=== PATIENT | female | born 1960 | race Caucasian/White ===

== ENCOUNTER 2021-05-24 06:13 | Observation (INO) ==
--- NOTE | 2021-05-21 09:45 | Anesthesiology Consultation ---
Date of Service May 21, 2021 Assessment & Plan (1) Encounter for pre-operative examination: Chart Review Chart Review: Acceptable Risk for Surgery (pending preop Covid testing results ) and Patient NOT seen in Pre Admission Testing -Will leave to anesthesiologist discretion if PRP (only electrolytes checked preop) Per nursing assessment 05/16/2021, pt works as a teacher in [employer]. Wears mask at work and in public. No known Covid infection in the past 90 days. Patient is fully vaccinated for Covid. No known Covid positive exposures or Covid related symptoms. Preop Covid testing scheduled 05/22/21= will await results Lefort fracture jaw 2 segments 04/30/19= Done under GA with grade 1 view with MAC #3. ETT #6.5. Atraumatic. History Surgery Operation Date: 05/24/21 07:15 Proposed Procedures p Lower Jaw Osteotomy and Surgical Stent Placement Direct Fixation - Viral Marcial DMD Height/Weight Height: 5 ft 7 in Weight: 92.533 kg Allergies Allergy/AdvReac Type Severity Reaction Status Date / Time nickel Allergy Unknown Rash Verified 05/16/21 14:34 Medications Home Medications Medication Instructions Recorded Confirmed Last Taken cholecalciferol (vitamin D3) 2,000 units PO QAM 02/09/19 05/16/21 04/29/19 06:00 esomeprazole magnesium 40 mg 40 mg PO QAM 02/09/19 05/16/21 04/30/19 02:30 capsule,delayed release (Nexium) spironolactone 50 mg tablet 100 mg PO QAM 02/09/19 05/16/21 04/29/19 06:00 (Aldactone) topiramate 25 mg sprinkle capsule 50 mg PO QAM 02/09/19 05/16/21 04/29/19 06:00 (Topamax) fluticasone propionate 50 2 spray INTRANASAL QAM 04/12/19 05/16/21 04/29/19 06:00 mcg/actuation nasal spray,suspension (Flonase Allergy Relief) guaifenesin 1,200 mg tablet, 1,200 mg PO DAILY PRN 04/12/19 05/16/21 04/29/19 06:00 extended release 12 hr (Mucinex) phenylephrine HCl 10 mg tablet 10 mg PO Q6H PRN 04/12/19 05/16/21 04/29/19 06:00 (Sudafed PE) acetaminophen 500 mg tablet 500 mg PO Q6H PRN 04/30/19 05/16/21 04/29/19 06:00 (Tylenol Extra Strength) atenolol 50 mg tablet 25 mg PO QAM tab 06/10/19 05/16/21 Unknown atorvastatin 10 mg tablet 10 mg PO QAM 02/20/21 05/16/21 Unknown azelastine 137 mcg (0.1 %) nasal 2 spray INTRANASAL QAM 05/16/21 05/16/21 Unknown spray aerosol tizanidine 4 mg capsule 4 mg PO Q6H PRN 05/16/21 05/16/21 Unknown Past Medical History Medical History Anemia Intermittent Degenerative disc disease GERD (gastroesophageal reflux disease) History of COVID-19 DX'D 11/2020-[facility] -RUNNY NOSE, FEVER, COUGH, BODY ACHES,SOB-RECOVERED AT HOME- STILL GETS SOB MORE EASILY THAN SHE USED TO Hyperlipemia IBS (irritable bowel syndrome) PVCs (premature ventricular contractions) MEDICATION KEEPS IN CHECK-DX 20 YRS AGO > NO EPISODES FOR A LONG TIME-NO CARDIOLOGY Vestibular migraine HX Past Family History Family History Family/Other Hypertension Mother Hypertension Stroke Sister Breast cancer Family history of diabetes mellitus Aunt Breast cancer Past Surgical History Surgical History Fusion of spine C5 C6 > ROM IS FINE H/O lumbar discectomy History of appendectomy History of bilateral tubal ligation History of breast biopsy R/L History of cholecystectomy History of colonoscopy MULTIPLE History of esophagogastroduodenoscopy (EGD) History of Griffin fundoplication History of open reduction and internal fixation (ORIF) procedure RIGHT FIBULA History of tooth extraction WISDOM TEETH Hx of oral surgery (04/30/19) Lefort [address] Marcial 04-30-19 Nausea and vomiting after administration of anesthetic agent Social History Smoking Status: Never smoker Do You Dip or Chew Tobacco: No Hx Alcohol Use: Yes Alcohol type: beer alcohol intake frequency: holidays/special occasions only Alcohol Intake Frequency Comment: RARELY Hx Substance Use: No substance use type: does not use Testing Laboratory Results 05/19/21= WBC: 4.8 H/H: 13.6/39.2 PLATELETS: 252 SODIUM: 139 POTASSIUM: 3.3 CHLORIDE: 104 CO2: 29 Electrocardiogram Date: 05/19/21 SR at 59 bpm. Abnormal R wave progression, early transaction (By personal visual inspection- R wave progression in 04/30/19 EKG looks similar in appearance)
--- NOTE | 2021-05-23 20:13 | History & Physical Report ---
Date of Service May 23, 2021 Assessment & Plan (1) Encounter for pre-operative examination: (2) Mandibular retrognathism: (3) Difficulty chewing: (4) Malocclusion, Angle's class II: History of Present Illness Chief Complaint: Maxillofacial exam updated May 24 2021--no changes OK for procedure as planned Oral Maxillofacial Surgery Exam Present Complaint: Mandibular retrognathism Class II difficulty in chewing and incising foods Oral Exam: Class II malocclusion Imaging: Panorex: The Panorex X Ray was reviewed, there were no abnormal findings Good bone anatomy good nerve position noted The TMJ are well positioned and no evidence of bony pathology. The sinus, supporting bone all WNL Evaluated the nerve/sinus relationship to the roots of the teeth and osteotomy sites . Cephalometric analysis---retrognathic lower jaw of 5-6 mm, dental flaring of lower teeth Soft tissue: floor of the mouth, tongue, hard/soft palate, posterior pharyngeal area all with in normal limits, no pathology or abnormal findings noted. No lesions noted that require follow up or Bx. Oral Care: Overall oral care is good Occlusion: Class II with ortho in place TMJ exam: No pop, clicking, pain, good ROM, No history of TMJ injury or dysfunction Periodontal exam: Healthy gingival tissue without evidence of periodontal pathology. Head/Neck exam: Neck is supple, FROM, Able to extend and flex neck w/o difficulty, no masses, no abnormalities, no airway issues, no evidence of sleep apnea. Treatment Plan: Sagittal advancement with DOF Set up with general anesthesia in hospital due to complexity of the procedure I reviewed the treatment plan and consent with the patient Understanding was expressed. Time was given for questions regarding the surgery, risks and post op care. Discussed alternative to treatment--procedure as planned, Do not do surgery Risks discussed: Bleeding,Pain,swelling,infection, delayed healing, nerve injury to face,lips,tongue,chin area which could be permanent (rare). TMJ, jaw stiffness, change in bite (rare), ear pain (referred). Sinus problems like fistula or infection. Bad split and need for lobsterman MMF. plate infection, poor results need for follow up ortho, she is aware dr Aguilar retired--will need new ortho to complete the case. Home care reviewed: tooth brushing, rinsing, follow up care with Dr Marcial. diet=[id number] dental. Discussed activity level, driving/work while on Rx pain Meds. Follow up with new bean picker machine operator to complete the case Surgery to be set up May 24 2021 The goal of this proposed jaw surgery is to re-establish the functional capacity of the patient`s bite. This has been brought about primarily by an unbalanced jaw relationship and resulting lack of occlusion. My patient`s main complaint is difficulty with mastication and chronic lip,tongue and cheek bitting. The primary goal of this treatment is to restore normal function through baptism of proper jaw position. The deformity is not correctable by orthodontic alone and surgery is medically necessary.We are preforming this procedure to obtain a function jaw relationship. The planned surgery will be preformed in the OR of The in [place], [place]. A 23 hour observation following the surgery is planned.This surgery should be considered medically necessary for the patient`s well-being. I have recently seen the above patient for a surgical consultation regarding a maxillofacial deformity. Clinical examination reveals a healthy 60 year old female, with an obvious maxillofacial deformity. Clinical evaluation supports the following: Mandibular retrognathism Inability to chew foods adequately The disharmonies in the jaw relationship are often caused by gross defects in the patient`s skeletal structures. Orthognathic surgery involves the reconstructive procedures to correct these deformities of the jaws and facial skeletal structures, and is indicated for this patient. Mrs. Bhatia has a diagnosis of a retrognathic lower jaw and traumatic malocclusion. This deformity is causing difficulty in mastication and a traumatic occlusion with bitting of the lips, tongue and cheeks. Due to the above diagnosis the patient requires the following functional orthognathic surgery. SURGERY REQUIRED (phase II treatment) Mandibular osteotomy This procedure will be done at the in [place], [place]. I am planning either an out patient or a 23 hr observation. Please be advised that this surgery will not be performed for a cosmetic correction. The unstable nature of the present jaw condition does not allow natural function . The skeletal deformity is not able to be corrected by orthodontics alone and thus surgery in medically necessary to improve and restore normal function and mastication ability. Diagnosis------- Retrognathism Suggested treatment--- sagittal advancement Main Concern: "my chewing is getting worse, I continue to bite my lips and tongue, my bite is off," Major Discrepancies: A-P Retrognathism-- There is a 5 mm retrognathic relationship of the lower to upper jaw Vertical Edge to Edge relationship-There is an edge-edge to relationship Medical Indication For Reconstructive Jaw Surgery Inability to close jaws into a normal relationship due to the severe skeletal deformity. Skeletal malocclusion due to the skeletal deformity resulting in a traumatic occlusion Chronic mastication difficulty due to the skeletal deformity. Soft tissue trauma to tongue, lips and cheeks due to the traumatic occlusion. excessive jarvis of lower teeth left side Treatment plan: Sagittal split advancement CPT 66197/ ICD10 M26.04 The above mentioned surgical procedure is not being preformed for any type of cosmetic reasons. The patient has a true jaw deformity that is preventing him/her from functioning in a normal manner. The proposed surgery is for functional rehabilitation of the skeletal alignment of the patient`s jaw. Plan Details Other Medications: New: atenolol 50 mg PO DAILY spironolactone (Aldactone) 50 mg PO DAILY esomeprazole magnesium 40 mg PO DAILY triamcinolone acetonide 55 mcg/actuation 55 mcg intranasal topiramate 25 mg PO DAILY cyclobenzaprine 10 mg PO HS cholecalciferol (vitamin D3) 2,000 units PO DAILY HPI HPI History of Present Illness: Details: The patient was referred for an orthognathic evaluation. 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 I reviewed the need for the OG surgery, discussed the timing of the surgery with ortho. Reviewed the risks such as pain,swelling,infection, bleeding, nerve injury which could cause permanent numbness to face, lips, chin, tongue and gums, sinus issues, congestion, stiffness and muscle pain, changes in bite and looks of teeth and face. Injury to teeth=root canals, scaring, need for further ortho, malunion, poor result home and oral care stressed, TMJ issues, no cosmetic issues all are functional , nasal, lip changes. Also reviewed home care, diet,follow up, activity level and continuation of orthodontic care. Diagnosis------Mandibular Retrognathism Suggested treatment----Mandibular sagittal advancement with Direct fixation Main Concern: "my chewing is getting worse, I continue to bite my lips and tongue, my bite is off," Software Trainer needs to correct lower arch due to it being narrow, however there is need for upper jaw to be made wider so the lower teeth can be up righted. Major Discrepancies:maxillary transverse hypoplasia and retrognathic lower jaw, poor dental occlusion lower/upper teeth, narrow upper-skeletal arch form, At present it looks normal however because of the narrow lower jaw the relationship is far from ideal A-P Retrognathism of lower by at least 6 mm Vertical Slight Open bite of 4 mm due to the narrow upper/lower jaw and Class II relationship Transverse: There is a narrowing of the upper or lower jaw of mm Once the transverse relationship of the lower teeth are orthodontic corrected the cross bite will be almost 8 mm Based on the established guidelines from the [place] [employer] the severity of this deformity precludes adequate treatment through dental treatment alone. Medical necessity has been established by the significant deformity and the resulting functional impairment in mastication. Patient will need a sagittal advancement CPT code 96771 This will be done at the in [place], [place]. 23 hours observation is planned General anesthesia planned Physical Exam updated May 24 2021 Constitutional: WD/WN, vitals as above well developed Eyes: PERRL, conjunctivae normal, anicteric sclerae normal visual lópez by confrontation and PERRL ENMT: external ear and nose normal, oropharynx normal Mouth: + tongue abnormality, + mouth trauma, + TMJ tender and + dental restorations Mallampati Class: II Throat: uvula midline Healed ulcers secondary to trauma from the skeletal malocclusion and tongue/lip bitting Class II bite with constriction of the lower and upper jaw poor occlusion Neck: trachea midline, no thyromegaly normal visual inspection Thyroid: normal thyroid Respiratory: normal respiratory effort, lungs clear to auscultation normal respiratory effort Auscultation: lungs clear to auscultation bilaterally and + breath sounds absent Cardiovascular: RRR, no murmur, no edema Rate/Rhythm: regular rate and regular rhythm Gastrointestinal (Abdomen): normal bowel sounds, soft, nontender, no hepatosplenomegaly Musculoskeletal: no cyanosis or clubbing, extremities motor strength 5/5 Head/Neck/Chest: normocephalic Skin: no rashes, warm and dry Neurologic: PERRL, EOMI, accommodation nl, no face palsy, no dysarthria CN's II-XI intact bilaterally Cranial Nerves: PERRL and normal facial strength Psychiatric: Orientation: oriented x 3 Lymphatic: no cervical or axillary lymphadenopathy Review of System updated May 24 2021 Review of Systems: Complete-ROS Surg: Constitutional:no fever,no chills,frequent headaches,no recent weight gainandno recent weight loss. Eyes:no eye pain,no blurred vision,no blurred vision,scotopic (night) vision is presentand eyesight problems. Neurological:dizziness,no fainting,no numbness,no tinglingandno convulsions or seizures. Endocrine:no excessive thirst,not feeling too hot,not too coldandnot feeling tired (fatigue). Cardiovascular:no murmurs were heard,no chest pain,no angina pectoris,the heart rate was not slow,the heart rate was not fast,no palpitationsandno lower extremity edema. Respiratory:no shortness of breath,no wheezing,no coughandno hemoptysis. Gastrointestinal:no abdominal pain,no abdominal bloating,no abdominal cramps,no menstrual pain,no nausea,no vomiting,no diarrhea,able to pass flatus,no constipation,no bright red blood per rectumandno melena. Integumentary:no rash:,no boils,no dry skinandno skin lesions. Musculoskeletal:no neck pain,back pain,no joint pain/arthralgiasandarthritis. Hematologic/Lymphatic:no swollen glands,no tendency for easy bruisingandno tendency for easy bleeding. ENT:no hearing loss,no nasal discharge,no hoarsenessandno sore throat. Psychiatric:no sleep disturbances,not nervous or anxious,no depressionandno trouble remembering. Genitourinary:no dysuria,no change in urinary frequency,no incontinence,no kidney stones,no hematuria,no weak stream,no infections,no urinary retentionandno incomplete emptying of bladder. Primary Care Provider: Cyndi Lord, Allergies Allergy/AdvReac Type Severity Reaction Status Date / Time nickel Allergy Unknown Rash Verified 05/24/21 06:42 Home Medications Medication Instructions Recorded Confirmed Type cholecalciferol (vitamin D3) 2,000 units PO QAM 02/09/19 05/24/21 History esomeprazole magnesium 40 mg 40 mg PO QAM 02/09/19 05/24/21 History capsule,delayed release (Nexium) spironolactone 50 mg tablet 100 mg PO QAM 02/09/19 05/24/21 History (Aldactone) topiramate 25 mg sprinkle capsule 50 mg PO QAM 02/09/19 05/24/21 History (Topamax) fluticasone propionate 50 2 spray INTRANASAL QAM 04/12/19 05/24/21 History mcg/actuation nasal spray,suspension (Flonase Allergy Relief) guaifenesin 1,200 mg tablet, 1,200 mg PO DAILY PRN 04/12/19 05/24/21 History extended release 12 hr (Mucinex) phenylephrine HCl 10 mg tablet 10 mg PO Q6H PRN 04/12/19 05/24/21 History (Sudafed PE) acetaminophen 500 mg tablet 500 mg PO Q6H PRN 04/30/19 05/24/21 History (Tylenol Extra Strength) atenolol 50 mg tablet 25 mg PO QAM tab 06/10/19 05/24/21 History atorvastatin 10 mg tablet 10 mg PO QAM 02/20/21 05/24/21 History azelastine 137 mcg (0.1 %) nasal 2 spray INTRANASAL QAM 05/16/21 05/24/21 History spray aerosol tizanidine 4 mg capsule 4 mg PO Q6H PRN 05/16/21 05/24/21 History amoxicillin 875 mg-potassium 1 tab PO Q12H #20 tab 05/22/21 05/24/21 Rx clavulanate 125 mg tablet hydrocodone 5 mg-acetaminophen 325 1 tab PO Q4H PRN #14 tab 05/22/21 05/24/21 Rx mg tablet hydrocodone 5 mg-acetaminophen 325 1 tab PO Q4H PRN #14 tab 05/22/21 05/24/21 Rx mg tablet ondansetron HCl 8 mg tablet 8 mg PO Q8H PRN #10 tab 05/22/21 05/24/21 Rx ondansetron HCl 8 mg tablet 8 mg PO Q8H PRN #10 tab 05/22/21 05/24/21 Rx hydrocodone 5 mg-acetaminophen 325 1 tab PO Q4H PRN #15 tab 05/23/21 05/24/21 Rx mg tablet Past Med/Surg History Medical History Anemia Intermittent Degenerative disc disease GERD (gastroesophageal reflux disease) History of COVID-19 DX'D 11/2020-[facility] -RUNNY NOSE, FEVER, COUGH, BODY ACHES,SOB-RECOVERED AT HOME- STILL GETS SOB MORE EASILY THAN SHE USED TO Hyperlipemia IBS (irritable bowel syndrome) PVCs (premature ventricular contractions) MEDICATION KEEPS IN CHECK-DX 20 YRS AGO > NO EPISODES FOR A LONG TIME-NO CAR DIOLOGY Vestibular migraine HX Surgical History Fusion of spine C5 C6 > ROM IS FINE H/O lumbar discectomy History of appendectomy History of bilateral tubal ligation History of breast biopsy R/L History of cholecystectomy History of colonoscopy MULTIPLE History of esophagogastroduodenoscopy (EGD) History of Griffin fundoplication History of open reduction and internal fixation (ORIF) procedure RIGHT FIBULA History of tooth extraction WISDOM TEETH Hx of oral surgery (04/30/19) Lefort [address] Marcial 04-30-19 Nausea and vomiting after administration of anesthetic agent Family History Family/Other Hypertension Mother Hypertension Stroke Sister Breast cancer Family history of diabetes mellitus Aunt Breast cancer Social History Smoking Status: Never smoker Second Hand Exposure: Yes (PARENTS SMOKED); Do You Dip or Chew Tobacco: No; Hx Alcohol Use: Yes Alcohol type: beer Hx Substance Use: No Preferred Language: Barbadian Communication Ability: Effective Inventory Audit Clerk Required: No Beliefs That Will Affect Care: None marital status: Current Living Situation: Spouse and Family Current Living Situation Comment: LIVES WITH SPOUSE, SON, AMI IN [employer] 2 GRANDKIDS current occupational status: employed current occupation: TEACHER [employer] Other Information That Helps Us Care for You: No Feels Safe at Home: Yes Safety Concerns: Feels Safe At This Time Assistive Devices: Cane and Glasses Assistive Devices Comment: BRACES/CANE PRN Physical Exam Physical Exam: Physical Exam Constitutional WD/WN, vitals as above Eyes PERRL, conjunctivae normal, anicteric sclerae Neck trachea midline, no thyromegaly Thyroid: normal thyroid Respiratory normal respiratory effort, lungs clear to auscultation Auscultation: lungs clear to auscultation bilaterally Cardiovascular RRR, no murmur, no edema Rate/Rhythm: regular rate and regular rhythm Gastrointestinal (Abdomen) normal bowel sounds, soft, nontender, no hepatosplenomegaly Musculoskeletal no cyanosis or clubbing, extremities motor strength 5/5 Skin no rashes, warm and dry Neurologic PERRL, EOMI, accommodation nl, no face palsy, no dysarthria Cranial Nerves: sense of smell intact, PERRL, normal accommodation, EOM intact bilaterally, normal facial strength, tongue midline, normal gag reflex, normal hearing, able to rotate head bilaterally, able to elevate shoulders bilaterally, no nystagmus and symmetric palate elevation Psychiatric A+Ox3, euthymic affect Orientation: cooperative Lymphatic no cervical or axillary lymphadenopathy PG Care Time/CCT Total # of Minutes Spent Total Time Spent with Patient: Total time spent is greater than 50% in coordination of care (as documented) at patient's floor/unit and/or counseling patient: Coding Level of Care Code None Diagnoses Encounter for pre-operative examination Z01.818 Mandibular retrognathism M26.19 Difficulty chewing K08.89 Malocclusion, Angle's class II M26.212 CPT Codes RECONST LWR JAW W/FIXATION - 62565 PREPARE FACE/ORAL PROSTHESIS - 14686
[~2021-05-24 06:13] MED LIST: LR 15ML/HR IV SCH; LR 60ML/HR IV SCH; ceFAZolin 2000MG 2,000 MG/15 ML SYR IV SCH
--- NOTE | 2021-05-24 07:15 | History & Physical Bridge Note ---
Date of Service May 24, 2021 History & Physical Bridge Note I have examined the patient, reviewed the History & Physical and in the interval since the performance of the History & Physical I have noted the following changes of clinical significance: no changes noted OK for the sagittal advancement with fixation Plan 23 hr observation
[2021-05-24] MEDS ORDERED: fentaNYL citrate 100 MCG/2 ML VIAL ONE ×2 (07:49→11:17)
[2021-05-24] MEDS ORDERED: MIDAZOLAM HCL 1 MG/ML 2ML VIAL ONE (07:49)
[2021-05-24] MEDS ORDERED: LIDOCAINE/EPINEPHRINE 1.7 ML CTR ONE (08:18)
[2021-05-24] MEDS ORDERED: BUPIVACAINE/EPINEPHRINE 0.5% 1:200,000 1.8 ML CARP ONE (08:18)
[2021-05-24] MEDS ORDERED: SCOPOLAMINE 1 MG TDSY TD ONE ×2 (08:44→08:48)
[2021-05-24] MEDS ORDERED: ePHEDrine sulfate 50 MG/ML AMP IV PRN (08:48)
[2021-05-24] MEDS ORDERED: ONDANSETRON INJ 2 MG/ML 2 ML VIAL IV PRN ×2 (08:48→11:39)
[2021-05-24] MEDS ORDERED: ATROPINE SULFATE 0.1 MG/ML 10ML SYR IV PRN (08:48)
[2021-05-24] MEDS ORDERED: PROMETHAZINE HCL 12.5 MG in SODIUM CHLORIDE 0.9% 50 ML IV PRN (08:48)
[2021-05-24] MEDS ORDERED: fentaNYL citrate 100 MCG/2 ML VIAL IV PRN (08:48)
[2021-05-24] MEDS ORDERED: CHLORHEXIDINE GLUCONATE 0.12% 480 ML ONE (09:01)
[2021-05-24] MEDS ORDERED: DEXAMETHASONE SOD INJ 4 MG/ML VIAL ONE (09:18)
[2021-05-24] MEDS ORDERED: ONDANSETRON INJ 2 MG/ML 2 ML VIAL ONE (09:18)
[2021-05-24] MEDS ORDERED: SUCCINYLCHOLINE 100MG/5ML SYR IV ONE (09:18)
[2021-05-24] MEDS ORDERED: LIDOCAINE 2% 2 ML VIAL/AMP(20MG/ML) INFIL ONE (09:18)
[2021-05-24] MEDS ORDERED: ROCURONIUM BROMIDE 10 MG/ML 5 ML VIAL IV ONE (09:18)
[2021-05-24] MEDS ORDERED: PROPOFOL IV EMULSION 10 MG/ML 20 ML VIAL IV ONE (09:18)
[2021-05-24] MEDS ORDERED: BACITRACIN OINT 15 GM TUBE ONE (10:34)
[2021-05-24] MEDS ORDERED: OXYMETAZOLINE 0.05% 30 ML BTL PRN (11:39)
[2021-05-24] MEDS ORDERED: MoRPHine SULFATE 2 MG/ML CARP IV PRN (11:39)
[2021-05-24] MEDS ORDERED: LORazepam 2 MG/1 ML VIAL IV PRN (11:39)
[2021-05-24] MEDS ORDERED: ACETAMINOPHEN SUSP 325 MG/10.15 ML UDC PO PRN (11:39)
--- NOTE | 2021-05-24 12:00 | Operative Report ---
PG Post Operative Report Pre & Post Diagnosis Operation Date: 05/24/21 08:20 Pre-Op Diagnosis: Mandibular retrognathism. Post-Op Diagnosis: Mandibular retrognathism. I identified the patient and participated in the time-out.: Yes Procedure Operation Date: 05/24/21 08:20 Actual Procedures p Lower jaw osteotomy and surgical stent placement direct fixation - Viral Marcial DMD Surgeon Viral Marcial, SHERYL Clothing Consultant none Estimated Blood Loss 15 Findings Consistent with Post-Op Diagnosis retrognathic lower jaw DESCRIPTION OF PROCEDURE: Bilateral sagittal split CPT Placement of surgical splint CPT 54009 Specimens none Drains none Anesthesia Type General Complications none Indications Class II retrognathic lower jaw Description of Procedure Operation Date: Pre-Op Diagnosis: Mandibular Retrognathia, Deep Bite Deformity Post-Op Diagnosis: Mandibular Retrognathia, Deep Bite Deformity I identified the patient and participated in the time-out.: Yes Actual Procedures p Sagittal Split Osteotomy of Lower Jaw with Fixation placement of surgical splint (Not Applicable) - Viral Marcial DMD Surgeon Viral Marcial DMD Clothing Consultant none Estimated Blood Loss 15 Findings Consistent with Post-Op Diagnosis Specimens none Drains none Anesthesia Type General Regional Complications none Indications mandibular retrognathism with deviation and deep bite Description of Procedure PG Post Operative Report Pre & Post Diagnosis Pre-Op Diagnosis: Class II Malocclusion with shift to the right Post-Op Diagnosis: Class II Malocclusion with shift to the right I identified the patient and participated in the time-out.: Yes Procedure Actual Procedures p Sagittal split of lower jaw, Placement of surgical splint(Not Applicable) - Viral Marcial DMD DESCRIPTION OF PROCEDURE: Bilateral sagittal split CPT Placement of surgical splint CPT 50548 After this patient is cleared to undergo general anesthesia, she was brought down to the operating room and placed under. General anesthesia via nasotracheal intubation. After adequate anesthesia was obtained, the patient was prepped and draped in the usual manner for a mandibularsagittal osteotomy. The patient had a class II with deviation to the right. This was a complex deformity in 3 D. . After the facial area was draped with the appropriate sterile technique, local anesthesia was infiltrated into themandibular tissues to allow for hemostasis with local anesthetic effect. Timeout After an adequate period of time to allow for the hemostasis and local anesthetic effect, an oropharyngeal throat pack was placed, the oral cavity was irrigated and suctioned dried with Peridex mouth rinse. At this time, the appropriate time outs to verify the patient, position, type of surgery,antibiotics and equipment once everyone agreed we then started the operative procedure. Right side sagittal split Using an electrocautery instrument, an incision approximately 1.5 cm in length was made in the external oblique region on the right side. The tissue was reflected to expose the bone. Once the bone was reflected; I had good visualization of the inferior border of the mandible, the angle of the mandible, the lingual aspect of the mandible and the nerve as it entered the mandibular foramen. Now with a fiberoptic retractor I was able to hold the lingual tissue out of the way and had good visualization of the lingual cortical plate and the nerve entrance into the bone. With the large round becka, I was able to remove the spinous processes of the external oblique ridge. Now using a reciprocating saw, an osteotomy was made parallel to the occlusion plane of the mandibular molar teeth approximately 1-2 mm above the nerve. I then used the spear point Hernandez becka very carefully to make a trough in the external oblique ridge from the previously made osteotomy to an area between the 1st and 2nd molars. I now continued the osteotomy parallel to the long axis of the lower molarsinferiorly to the inferior border of the mandible, taking great care to avoid any trauma to the neurovascular bundle and to ensure that I cut through the cortical plate into the marrow vascular channel. Splitting right side With the use of a bone psych specialist and a small osteotome, I was able to complete the sagittal split of the right mandibular ramus. Great care was taken to avoid any trauma to the neurovascular bundle. Because of the thickness of the bone, the nerve was left in the condyle segment . Due to the bony anatomy of the osteotomy, I did a lot of bone reduction to allow for the mandible to be passively positioned without any pressure on the nerve or pressure that could cause distortion of the mandibular condyle. Once this was accomplished on the right side I turned my attention to the left side and did a very similar procedure in making sure that the two fragments would lay passively over each other and the osteotomy site was then trimmed to ensure that there were no bony interferences I irrigated the areas with normal saline, made sure that the neurovascular bundles were intact. Hemostasis was in excellent control. It was noted that there were few small bony interferences that trimmed with the use of rongeurs and rotary instrument. Once this was accomplished I packed the side with a gauze sponge to prevent any pressure on the nerve and to control bleeding. At this time, I turned my attention to the left side. I needed to use osteotome to complete the splitting of the primally cortical bone w/o a marrow component! Left side sagittal split Using an electrocautery instrument, an incision approximately 1.5 cm in length was made in the external oblique region on the right side. The tissue was reflected to expose the bone. Once the bone was reflected; I had good visualization of the inferior border of the mandible, the angle of the mandible, the lingual aspect of the mandible and the nerve as it entered the mandibular foramen. Now with a fiberoptic retractor I was able to hold the lingual tissue out of the way and had good visualization of the lingual cortical plate and the nerve entrance into the bone. With the large round becka, I was able to remove the spinous processes of the external oblique ridge. Now using a reciprocating saw, an osteotomy was made parallel to the occlusion plane of the mandibular molar teeth approximately 1-2 mm above the nerve. I then used the spear point Hernandez becka very carefully to make a trough in the external oblique ridge from the previously made osteotomy to an area between the 1st and 2nd molars. I now continued the osteotomy parallel to the long axis of the lower molarsinferiorly to the inferior border of the mandible, taking great care to avoid any trauma to the neurovascular bundle and to ensure that I cut through the cortical plate into the marrow vascular channel. Splitting left side with the use of a bone psych specialist and a small osteotome, I was able to complete the sagittal split of the right mandibular ramus. Great care was taken to avoid any trauma to the neurovascular bundle. Because of the thickness of the bone, the nerve was left in the condyle segmen. Due to the bony anatomy of the osteotomy, I did a lot of bone reduction to allow for the mandible to be passively positioned without any pressure on the nerve or pressure that could cause distortion of the mandibular condyle. Once this was accomplished on the right side I turned my attention to the left side and did a very similar procedure in making sure that the two fragments would lay passively over each other and the osteotomy site was then trimmed to ensure that there were no bony interferences I irrigated the areas with normal saline, made sure that the neurovascular bundles were intact. Hemostasis was in excellent control. It was noted that there were few small bony interferences that trimmed with the use of rongeurs and rotary instrument. Once this was accomplished I packed the side with a gauze sponge to prevent any pressure on the nerve and to control bleeding. Establishing the occlusion once the right and left sides were completely cut and the soft tissue was reflected to allow repositioning the final occlusal splint was applied to the mandible and the mandibular complex with the splint was easily rotated and held into position and stabilized with 25 gauge stainless steel wires to the maxilla. Once both sides were split and the segments were layingpassively over each other, the osteotomy site was then trimmed to ensure that there were no bony int erferences. I irrigated the areas with normal saline, made sure that the neurovascular bundles were intact and that hemostasis was in excellent control. Once the segments were positioned the 7 mm advancement with shift to the left and rotation was noted. This was a very complex 3-D movement. The soft tissue was reflected to allow a passive advancement. Applying Direct osseous fixation It was noted that there were few small bony interferences which were easily trimmed with the use of rongeurs and rotary instrument. I was now ready to place the fixation screws. Right side--I used a small clasp, placed between the two fragments and noted that the fragments were seating extremely passively over each other. I did some further trimming to ensure that there was no pressure on the nerve and to ensure that the condyle was well seated. Being satisfied with this, I passed an 11 blade through the cheek, a trocar was placed and then 4 interosseous holes were placed above the neurovascular bundle, but below the external oblique ridge for direct osseous fixation of the right mandibular fragment. Left side----I used a small clasp, placed between the two fragments and noted that the fragments were seating extremely passively over each other. I did some further trimming to ensure that there was no pressure on the nerve and to ensure that the condyle waswell seated. Being satisfied with this, I passed an 11 bladethrough the cheek, a trocar was placed and then 3 interosseous holes were placed above the neurovascular bundle, but below the external oblique ridge for direct osseous fixation of the left mandibular fragment. I now checked both osteotomy sites and found them to be extremely stable. At this time, the temporary intermaxillary fixation was removed. The occlusion was extremely stable and reproducible. The patient had a good range of motion without clicks or pops or deviations. The sites were irrigated and checked for bleeding. I inspected the lingual aspects to make sure that the screws did not perforate the lingual cortical plate--were necessary the screws were adjusted to insure a flush fit. Closure I turned my attention first to the right side; with the use of a 4-0 Vicryl suture, I was able to suture the osteotomy site. Once this was accomplished, we turned our attention to the left side and a similar suturing technique was carried out. Using a 6-0 nylon suture 2 skin sutures in each cheek site was used to close the skin. 2 dental elastics were applied in the cupid areas to allow for functional elastic stability. I now placed a gauze pressure dressing on the lateral sides and held them with an elastic pressure band around the face Recovery The patient was allowed to recover in the usual manner. A check to insure all instrument and sponge count was correct was accomplished and verified the oral cavity was suctioned and Ipassed an oral gastric tube. When fully recovered, extubation occurred. All vital signs were extremely stable. Now the anesthesia department transferred the patient to the hospital litter to be taken to the recovery room. I am very pleased with the osteotomy sites, the positioning of the nerve, and the functional improvement that was gained by the osteotomy. ESTIMATED TIME OF OPERATION: Approximately 2.30 hours When I completedthe case I inspected the sites to insure all bleeding was controlled and the fixation was stable. I removed the throat pack and suctioned the throat and placed an OG tube. Bilateral gauze pressure dressings were placed. All instrument and sponge count was correct. The patient was allowed to awake from the anesthesia. Once full awake the anesthesia tube was removed and the patient was taken to the recovery room with all vital sign stable. The patient tolerated the surgery verywell. I will keep [place] overnight and D/C w/in 23 hr observation. If patient meet criteria he will be discharged tomorrow AM I will follow the patient in my office, Rx and instructions will be given upon discharge. First post op May 29 at 4 :15 I attest to the content of the Intraoperative Record and any orders documented therein. Any exceptions are noted below.
[2021-05-24] MEDS ORDERED: TRIAMCINOLONE ACET 0.1% OINT 15 GM TUBE ONE (12:21)
[2021-05-24] MEDS ORDERED: PROMETHAZINE HCL INJ 25 MG/ML 1 ML VIAL ONE (12:28)
[2021-05-24] MEDS ORDERED: SODIUM CHLORIDE 0.9% 50 ML BAG ONE (12:28)
--- NOTE | 2021-05-24 12:36 | Anesthesiology Progress Note ---
Date of Service May 24, 2021 Anesthesia Post Procedure Vital Signs Vital Signs: Temp Pulse Pulse Resp BP Pulse Ox 05/24/21 12:15 97.2 F L 75 16 142/71 H 94 05/24/21 12:05 68 17 127/64 96 05/24/21 11:55 73 20 130/65 97 05/24/21 11:45 72 14 127/76 92 05/24/21 11:35 97.3 F L 95 H 13 113/87 98 05/24/21 06:53 98.1 F 69 18 98/75 L 97 Pain Intensity Jaw: Pain Intensity: 2 Transfer of Care Handoff Completed per policy Notes Mental Status: alert / awake / arousable and participated in evaluation Patient Amnestic to Procedure: Yes Nausea / Vomiting: adequately controlled Pain: adequately controlled Airway Patency, RR, SpO2: stable & adequate BP & HR: stable & adequate Hydration State: stable & adequate Anesthetic Complications: no major complications apparent and Pt Satisfied with anesthetic care
[2021-05-24] MEDS ORDERED: tiZANidine HCL 4 MG TABLET PO PRN (14:26)
[2021-05-24] MEDS ORDERED: ACETAMINOPHEN 500 MG TAB PO PRN (14:26)
[2021-05-24] MEDS ORDERED: ONDANSETRON 8MG OD TAB PO PRN (14:40)
[2021-05-24] MEDS: KETOROLAC 30 MG/ML VIAL IV SCH ×3 (14:50→23:59)
[2021-05-24] MEDS: D5W AND 1/2NSS + 20MEQ KCL 20 MEQ/1,000 ML BAG IV SCH ×2 (14:51→23:59)
[2021-05-24] MEDS: dexAMETHasone 6 MG in SYRINGE 0 ML IV SCH ×2 (14:51→20:27)
[2021-05-24] MEDS: CHECK SCOPOLAMINE PATCH PLACEMENT SCH (14:59)
--- NOTE | 2021-05-24 16:01 | XRay Report ---
XR mandible <4V CLINICAL HISTORY: Status Post-Op Surgery AP Mandibular and Jaw View COMPARISON STUDY: None. FINDINGS: Postoperative changes consistent with bilateral mandibular osteotomies with screw fixation. The hardware appears intact. The alignment is near-anatomic. Orthodontic hardware is noted. Prior ce rvical spinal fusion hardware is also partially imaged. IMPRESSION: Postoperative changes consistent with bilateral mandibular osteotomies with screw fixati on. ACT 112: Negative or not required by law. Electronically signed by: Awais Metz M.D. 05/24/2021 3:59 PM
[2021-05-24] MEDS: ceFAZolin 2000MG 2,000 MG/15 ML SYR IV SCH ×2 (16:21→23:59)
[2021-05-24] MEDS ORDERED: AMOXICILLIN/CLAVULANATE 875 MG TAB PO SCH (20:00)
[2021-05-24] MEDS: AMOXICILLIN/CLAVULANATE 875 MG TAB PO SCH (20:27)
[2021-05-24] MEDS: CHLORHEXIDINE GLUCONATE 0.12% 480 ML MT SCH (20:32)
[2021-05-24] MEDS ORDERED: TRIAMCINOLONE ACET 0.1% OINT 15 GM TUBE EXT SCH (21:00)
[2021-05-25] MEDS: dexAMETHasone 6 MG in SYRINGE 0 ML IV SCH ×2 (03:36→08:26)
[2021-05-25] MEDS: KETOROLAC 30 MG/ML VIAL IV SCH (06:36)
[2021-05-25] MEDS: CHECK SCOPOLAMINE PATCH PLACEMENT SCH ×2 (08:25)
[2021-05-25] MEDS: D5W AND 1/2NSS + 20MEQ KCL 20 MEQ/1,000 ML BAG IV SCH (08:25)
[2021-05-25] MEDS: AMOXICILLIN/CLAVULANATE 875 MG TAB PO SCH (08:26)
[2021-05-25] MEDS: CHLORHEXIDINE GLUCONATE 0.12% 480 ML MT SCH (08:26)
[2021-05-25] MEDS: ceFAZolin 2000MG 2,000 MG/15 ML SYR IV SCH (08:31)
[2021-05-25] MEDS ORDERED: PANTOprazole 40 MG TAB PO SCH (09:00)
[2021-05-25] MEDS ORDERED: ATENOLOL 25 MG TABLET PO SCH (09:00)
[2021-05-25] MEDS ORDERED: CHOLECALCIFEROL 1,000 UNITS 25 MCG TAB PO SCH (09:00)
[2021-05-25] MEDS ORDERED: ATORVASTATIN 10 MG TAB PO SCH (09:00)
[2021-05-25] MEDS ORDERED: SPIRONOLACTONE 100 MG TAB PO SCH (09:00)
[2021-05-25] MEDS ORDERED: TOPIRAMATE 50 MG TAB PO SCH (09:00)
--- NOTE | 2021-05-25 10:15 | Progress Note ---
Date of Service May 25, 2021 Assessment & Plan Admission and Anticipated Discharge Date Admission Date: May 24, 2021 Subjective Orthognathic surgery post op note at 24 hours Excellent result, at [address] Tissue tone, gingival tissue--excellent Occlusion very stable and reproducible bite. No TMJ issues-pain, nose, pop. Reviewed use of functional elastics Has follow up with [employer] on June 04 No nasal congestion, bleeding, septum well positioned. No sinus issues Facial alignment excellent Reviewed post op care--diet, oral care, use of elastics, activities. Paraesthesia and swelling as expected for 24 hours Overall excellent result from recent OG surgery RTC for continued follow up on May [address] Marcial Rx and inst . given OK for D/C today Results & Data ([facility]) Vital Signs (Past 12 Hours) Vital Signs Temp Pulse Resp BP Pulse Ox Pulse Ox 05/25/21 09:36 97 05/25/21 07:39 36.6 C 74 12 104/63 97 05/25/21 06:00 97 05/25/21 05:00 95 05/25/21 04:00 97 05/25/21 03:00 95 05/25/21 02:58 36.8 C 71 16 96/56 L 93 05/25/21 02:00 96 05/25/21 01:00 96 05/25/21 00:00 97 05/24/21 23:00 96 05/24/21 22:44 37.0 C 77 16 111/65 94 PG Care Time/CCT Total # of Minutes Spent Total Time Spent with Patient: Total time spent is greater than 50% in coordination of care (as documented) at patient's floor/unit and/or counseling patient: Coding Level of Care Code 03414 Subseq Hosp Care Lvl 1
--- NOTE | 2021-05-29 14:51 | Discharge Summary ---
Date of Service May 29, 2021 Admission HPI Per Admitting Provider 23 hr observation after sagittal advancement of the lower jaw. Discharge Data Procedures Performed Operation Date: 05/24/21 08:20 Actual Procedures p Lower jaw osteotomy and surgical stent placement direct fixation - Viral Marcial, DMD Hospital Course Underwent a sagittal advancement of her lower jaw with direct fixation. Tolerated the surgery well. Patient lives over [place] from [place] and I felt it was appropriate to keep her over night as a [address] is not appropriate. James had a good night and her VS were stable. I saw her in the AM and she was doing very well and was ready for D/C this AM. Instructions given, diet reviewed , elastic traction reviewed, post op appointment given. VS stable, no N/V, excellent occlusion, pain well controlled, diet good. OK for discharge this am. Coding Level of Care Code 44398 OBS Care - Discharge CPT Codes PREPARE FACE/ORAL PROSTHESIS - 68397 RECONST LWR JAW W/FIXATION - 06470
== END 2021-05-25 11:14 | disposition home or self-care (01) ==
LOC: PACUINP 06:13 → ASU 06:13 → 3E 14:17